=== PATIENT | male | born 1990 | race Asian ===

== ENCOUNTER 2018-04-29 18:51 | Emergency (ER) | payer BC ==
[2018-04-29] MEDS ORDERED: diphenhydrAMINE 50 MG Cap PO ONE (19:11)
--- NOTE | 2018-04-29 19:35 | EDM.PDOC ---
ED HPI GENERAL MEDICAL PROBLEM - General Chief Complaint: General Stated Complaint: ALLERGIC REACTION Time Seen by Provider: 04/29/18 19:00 Source of Information: Reports: Patient History Limitations: Reports: No Limitations - History of Present Illness INITIAL COMMENTS - FREE TEXT/NARRATIVE: Pt claims that he has developed itchy rash all over the body suddenly. Pt claims he has had some nasal congestion and sore throat.hence he went nd bought some benzocine lozenges. He used once tonight and with in 30 minutes of using the lozenges he started to have skin itching and developed blotchy rashes all over the body. rashes are itchy, but no skin breakdown or oozing. No wheezing, chest tightness, nausea or vomiting, shortness of breath. No hoarseness of voice or loss of voice. Onset: Today Onset Date: 04/29/18 Onset Time: 18:00 Severity: Moderate Improves with: Reports: None Worsens with: Reports: None Associated Symptoms: Reports: Rash. Denies: Confusion, Chest Pain, Cough, Diaphoresis, Fever/Chills, Headaches, Nausea/Vomiting, Seizure, Shortness of Breath, Syncope, Weakness - Related Data Allergies Allergy/AdvReac Type Severity Reaction Status Date / Time No Known Allergies Allergy Verified 04/29/18 19:08 Home Meds: Home Meds NK [No Known Home Meds] 04/29/18 [History] ED ROS GENERAL - Review of Systems Review Of Systems: See Below Constitutional: Denies: Fever, Chills, Malaise, Weakness HEENT: Reports: Rhinitis, Throat Pain. Denies: Ear Pain, Throat Swelling Respiratory: Denies: Shortness of Breath, Wheezing, Pleuritic Chest Pain, Cough , Sputum Cardiovascular: Denies: Chest Pain, Edema, Lightheadedness GI/Abdominal: Denies: Abdominal Pain, Nausea, Vomiting : Denies: Flank Pain, Frequency Musculoskeletal: Denies: Joint Pain, Joint Swelling Skin: Reports: Pruritis, Rash, Erythema. Denies: Bruising Neurological: Denies: Confusion, Dizziness, Headache, Numbness, Tingling Psychiatric: Denies: Anxiety, Confusion, Cravings, Depression ED EXAM, GENERAL - Physical Exam Exam: See Below Exam Limited By: No Limitations General Appearance: Alert, WD/WN, No Apparent Distress Eye Exam: Bilateral Eye: EOMI, PERRL Ears: Normal External Exam, Normal Canal, Hearing Grossly Normal, Normal TMs Ear Exam: Bilateral Ear: Auricle Normal, Canal Normal, TM normal Nose: Normal Inspection, Normal Mucosa, No Blood Throat/Mouth: Normal Inspection, Normal Lips, Normal Teeth, Normal Gums, Normal Oropharynx, Normal Voice, No Airway Compromise Head: Atraumatic, Normocephalic Neck: Normal Inspection, Supple, Non-Tender, Full Range of Motion Respiratory/Chest: No Respiratory Distress, Lungs Clear, Normal Breath Sounds, No Accessory Muscle Use, Chest Non-Tender Cardiovascular: Normal Peripheral Pulses, Regular Rate, Rhythm, No Edema, No Gallop, No JVD, No Murmur, No Rub GI/Abdominal: Normal Bowel Sounds, Soft, Non-Tender, No Organomegaly, No Distention, No Abnormal Bruit, No Mass Extremities: Normal Inspection, Normal Range of Motion, Non-Tender, Normal Capillary Refill, No Pedal Edema Skin Exam: Warm, Rash (There are large area of wheal and flare reaction seen scatterred all over the body.There is positive dermatographism and skin edema.) Course - Vital Signs Text/Narrative:: Pt appears to have reaction to benzocaine, as it is the ingredient in the the lozenges, he might be having allergic skin reaction to procaine group of medications. Pt did receive oral Benadryl 50mg . Also he did receive kenalog 40mg IM. Started on tapering dose of prednisone. Advised to start Benadryl 50mg 3 times daily and zantac 150mg twice daily for next 2-3 days. Avoid scratching the skin. calamine lotion to the skin. Last Recorded V/S: Last Vital Signs Temp 100.1 F 04/29/18 18:59 Pulse 95 04/29/18 18:59 Resp 20 04/29/18 18:59 BP 155/100 H 04/29/18 18:59 Pulse Ox 99 04/29/18 18:59 - Orders/Labs/Meds Meds: Medications Discontinued Medications Generic Name Dose Route Start Last Admin Trade Name Ezekiel PRN Reason Stop Dose Admin Diphenhydramine HCl 50 mg 04/29/18 19:11 Benadryl PO 04/29/18 19:12 ONETIME ONE Departure - Departure Time of Disposition: 19:35 Disposition: Home, Self-Care 01 Condition: Fair Clinical Impression: Drug-induced skin rash - Discharge Information *PRESCRIPTION DRUG MONITORING PROGRAM REVIEWED*: Not Applicable *COPY OF PRESCRIPTION DRUG MONITORING REPORT IN PATIENT NERY: Not Applicable Instructions: Hives, Allergies, Adult, [id number], Drug Allergy, [id number] Forms: ED Department Discharge Additional Instructions: Benadryl (diphenhydramine) 50mg three times a day and Zyrtec (cetirizine)10 mg daily. Then stop taking these two medications when the hives are better. You can also black pickler Calamine lotion to decrease the itching as well. prednisone will be picked up in the pharmacy in the morning and follow the orders on the copied prescription. You are ALLERGIC to BENZOCAINE, this will probably also include other medication that include the word SHANDRA at the end of the name. If you have any questions or concerns please call the hospital at [phone]. - Problem List & Annotations (1) Drug-induced skin rash SNOMED Code(s): 43421520 Code(s): L27.0 - GEN SKIN ERUPTION DUE TO DRUGS AND MEDS TAKEN INTERNALLY Status: Acute - Problem List Review Problem List Initiated/Reviewed/Updated: Yes - Assessment/Plan Assessment:: Benzocaine induced allergic skin reaction Plan: Pt appears to have reaction to benzocaine, as it is the ingredient in the the lozenges, he might be having allergic skin reaction to procaine group of medications. Pt did receive oral Benadryl 50mg . Also he did receive kenalog 40mg IM. Started on tapering dose of prednisone. Advised to start Benadryl 50mg 3 times daily and zantac 150mg twice daily for next 2-3 days. Avoid scratching the skin. calamine lotion to the skin.
[2018-04-29] MEDS ORDERED: Triamcinolone Acetonide 40 MG/ML 1 ML MDV INJECT ONE (21:41)
== END 2018-04-29 19:35 | disposition home or self-care (01) ==
LOC: LB.ED 18:51
DX: L27.0 Generalized skin eruption due to drugs and medicaments taken internally (principal); T41.3X5A Adverse effect of local anesthetics, initial encounter
CPT/HCPCS: 96372; 99282; A9270; J3301